=== PATIENT | male | born 1930 | race Caucasian/White ===

== ENCOUNTER 2020-06-11 02:48 | Emergency (ER) | payer MEDICARE, BC ==
[~2020-06-11] VITALS: Ht 162.6 cm; Wt 68.9 kg
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
[2020-06-11] MEDS ORDERED: TDAP [DIPH/PERTUSSIS/TET] 0.5 ML VIAL IM ONE ×2 (03:00→03:10)
[2020-06-11] MEDS ORDERED: LIDOCAINE 2%-EPI 1:100,000 30 ML VIAL ONE ×2 (03:01→03:09)
--- NOTE | 2020-06-11 03:07 | NUR ---
MIO, CHARLES [place]: [phone]
--- NOTE | 2020-06-11 04:08 | NUR ---
called radiology for head CT
--- NOTE | 2020-06-11 05:02 | NUR ---
Patient discharged to home in stable condition. Written and verbal after care instructions given. Patient verbalizes understanding of instruction.Pt ambulatory with a steady gait
[2020-06-11 05:03] VITALS: BP 128/77
== END 2020-06-11 05:03 | disposition home or self-care (01) ==
LOC: ER 02:51 → EDBD 02:51 → ER 05:03
DX: S01.81XA Laceration without foreign body of other part of head, initial encounter (principal); E11.9 Type 2 diabetes mellitus without complications; I48.91 Unspecified atrial fibrillation; W01.0XXA Fall on same level from slipping, tripping and stumbling without subsequent striking against object, initial encounter; Y93.89 Activity, other specified; Y92.89 Other specified places as the place of occurrence of the external cause; Y99.8 Other external cause status
CPT/HCPCS: 12011; 70450; 90471; 90715; 99284; J3490